=== PATIENT | female | born 1960 | race Caucasian/White ===

== ENCOUNTER 2017-03-23 10:12 | Emergency (ER) | payer SELFPAY ==
[~2017-03-23] VITALS: Ht 157.5 cm; Wt 98.0 kg
[~2017-03-23 10:12] MED LIST: LISI-360 PO; MONT10TA2 PO
[2017-03-23 10:13] VITALS: BP 180/82; PULSE 80; RESP 20; TEMP 97.5; O2SAT 98
[2017-03-23] MEDS ORDERED: CARV6.252 PO (10:23)
[2017-03-23] MEDS ORDERED: BACT800T5 PO (10:23)
[2017-03-23] MEDS ORDERED: HYDR-3366 PO (10:23)
--- NOTE | 2017-03-23 10:34 | PD ---
HPI Chief Complaint: Complaint Time Seen by Provider: 10:26 Travel History International Travel<30 days: No Contact w/Intl Traveler<30days: No Traveled to known affect area: No History of Present Illness HPI This patient complains of urinary frequency and some urgency as well as some left low back pain. She was worried about a UTI. She called her primary physician and antibiotic was called in she started a couple days ago. This was Bactrim. She denies fever or vomiting or nausea. Symptoms severity is mild. She just doesn't feel any better. No alleviating factors. PFSH Past Medical History Arthritis: Yes Diminished Hearing: No Hypertension: Yes Musculoskeletal: Yes (FRACTURED RIGHT KNEE) Influenza Vaccination: No ?: Not Para: 4 Past Surgical History Surgical History: No Previous Surgery Social History Alcohol Use: No Tobacco Use: No Substance Use: No Allergies-Medications (Allergen,Severity, Reaction): Coded Allergies: No Known Allergies (Verified , 03/23/17) Reported Meds & Prescriptions Reported Meds & Active Scripts Active Reported Bactrim DS (Sulfamethoxazole-Trimethoprim) 800-160 Mg Tab 1 Tab PO BID [place] (Hydrocodone-Acetaminophen) 10-325 Mg Tab 1 Tab PO TID PRN Carvedilol 6.25 Mg Tab 6.25 Mg PO BID Review of Systems General / Constitutional: No: Fever Eyes: No: Visual changes HENT: No: Headaches Cardiovascular: No: Chest Pain or Discomfort Respiratory: No: Shortness of Breath Gastrointestinal: No: Abdominal Pain Genitourinary: Positive: Urgency, Frequency, No: Dysuria Musculoskeletal: Positive: Pain Skin: No Rash Neurologic: No: Weakness Psychiatric: No: Depression Endocrine: No: Polydipsia Hematologic/Lymphatic: No: Easy Bruising Physical Exam Narrative GENERAL: Well-nourished, well-developed patient in no apparent distress. SKIN: Focused skin assessment reveals no rash and nodules. Skin is Warm and dry. HEAD: Atraumatic. Normocephalic. EYES: Pupils equal and round. No scleral icterus. No injection or drainage. ENT: No nasal bleeding or discharge. Mucous membranes pink and moist. NECK: Trachea midline. No JVD. CARDIOVASCULAR: Regular rate and rhythm. No murmur appreciated. RESPIRATORY: No accessory muscle use. Clear to auscultation. Breath sounds equal bilaterally. GASTROINTESTINAL: Abdomen soft, non-tender, nondistended. Hepatic and splenic margins not palpable. MUSCULOSKELETAL: No obvious deformities. No clubbing. No cyanosis. No edema. NEUROLOGICAL: Awake and alert. No obvious cranial nerve deficits. Motor grossly within normal limits. Normal speech. PSYCHIATRIC: Appropriate mood and affect; insight and judgment normal. Data Data Last Documented VS Vital Signs Date Time Temp Pulse Resp B/P (MAP) Pulse Ox O2 Delivery O2 Flow Rate FiO2 03/23/17 10:13 97.5 80 20 180/82 (114) 98 Room Air Orders Orders Urinalysis - C+S If Indicated (03/23/17 10:29) Labs Laboratory Tests Test 03/23/17 10:32 Urine Color LIGHT-YELLOW Urine Turbidity CLEAR Urine pH 6.0 Urine Specific [place] 1.007 Urine Protein NEG mg/dL Urine Glucose (UA) NEG mg/dL Urine Ketones NEG mg/dL Urine Occult Blood SMALL Urine Nitrite NEG Urine Bilirubin NEG Urine Urobilinogen LESS THAN 2.0 MG/DL Urine Leukocyte Esterase LARGE Urine RBC 1 /hpf Urine WBC 1 /hpf Urine Squamous Epithelial Cells 1 /hpf Urine Mucus FEW /lpf Microscopic Urinalysis Comment CULT NOT INDICATED MDM Medical Decision Making Medical Screen Exam Complete: Yes Emergency Medical Condition: Yes Medical Record Reviewed: Yes Differential Diagnosis Cystitis, pyelonephritis, UTI Narrative Course I have reviewed the patient's electronic medical record. Urinalysis does not meet standards for infection and does not look significantly infected Discussed options with the patient. She would like just to finish out her medicine. In retrospect she says she does feel better. She will contact her doctor soon for follow-up Diagnosis Primary Impression: Increased urinary frequency Additional Impression: Low back pain Qualified Codes: M54.5 - Low back pain Additional Instructions: The patient was advised to follow up with their physician and return if they worsen. Med/Other Pt SpecificInfo: Other Disposition: 01 DISCHARGE HOME Condition: Stable Otto Mathur MD Mar 23, 2017 10:34
[2017-03-23 11:22] LABS: BLOOD, URINE SMALL (NEG); COMMENT (UR) CULT NOT INDICATED; CULTURE IF INDICATED CULT NOT INDICATED; GLUCOSE,URINE NEG (NEG); KETONE, URINE NEG (NEG); MUCUS URINE FEW /lpf (OCC); NITRITE,URINE NEG (NEG); SQUAMOUS EPITHELIAL CELL URINE 1 /hpf (0-5); URINE COLOR LIGHT-YELLOW (YELLW/STRAW)
== END 2017-03-23 12:10 | disposition home or self-care (01) ==
LOC: NEPD 10:12
DX: R35.0 Frequency of micturition (principal); M54.5 Low back pain
CPT/HCPCS: 81001; 99283